=== PATIENT | male | born 1990 | race Caucasian/White ===

== ENCOUNTER 2016-10-23 19:51 | Emergency (ER) | payer OTHER ==
[~2016-10-23] VITALS: Ht 172.7 cm; Wt 72.6 kg
--- NOTE | ~2016-10-23 | EKG ---
[place], [place] ELECTROCARDIOGRAM REPORT NAME: MALATHI ANGEL JR UNIT #: [id number] ROOM: DOCTOR: GAYLE MARROQUIN MD BIRTHDATE: [birth year] DOS: 10/23/2016 TIME: 19:56:43. RATE AND RHYTHM: Normal sinus rhythm at 85 beats per minute. SD interval 132 milliseconds, QRS duration is 105 milliseconds, corrected QT interval 461 milliseconds. QRS axis is . IMPRESSION: Normal EKG. GAYLE MARROQUIN MD CM:EKGRPT:ELECTROCARDIOGRAM REPORT [id number] GAYLE MARROQUIN MD
[~2016-10-23 19:51] MED LIST: ATARAX25 MG PO; BACTROBAN OINT22 GM PO; HYDROCODONE BIT1 T11 PO; KENALOG0.1% TP; MOTRIN800 MG PO; PEN-VEE K500 MG PO; PROTONIX40 MG PO; Peridex 473 ML473 ML PO; VOLTAREN50 M1 PO; Zofran4 MG PO
[2016-10-23 20:16] LABS: BASO % 0.4 % (0.0-1.0); EOS # 0.1 10*3/uL (0.0-0.4); EOS % 0.8 % (1.0-4.0); HEMATOCRIT 43.8 % (42.0-52.0); HEMOGLOBIN 15.6 g/dl (14.0-18.0); LYMPH # 3.2 10*3/uL (1.3-4.4); LYMPH % 31.9 % (27.0-41.0); MEAN CELL VOLUME 83.9 fl (80.0-94.0); MEAN CORPUSCULAR HGB 29.9 pg (27.0-31.0); MEAN CORPUSCULAR HGB CONC 35.6 g/dl (33.0-37.0); MEAN PLATELET VOLUME 9.6 fl (9.6-12.3); MONO # 0.7 10*3/uL (0.1-1.0); MONO % 6.7 % (3.0-9.0); NEUT # 5.9 10*3/uL (2.3-7.9); NEUT % 59.9 % (47.0-73.0); PLATELET COUNT AUTOMATED 240 10*3/uL (130-400); RED BLOOD COUNT 5.22 10*6/uL (4.50-5.90); RED CELL DISTRI WIDTH 11.7 % (0-14.5); WHITE BLOOD COUNT 9.9 10*3/uL (4.8-10.8)
[2016-10-23 20:36] LABS: ALKALINE PHOSPHATASE 66 U/L (45-117); BILIRUBIN, TOTAL 0.9 mg/dl (0.2-1.0); BUN 11 mg/dl (7-24); CARBON DIOXIDE 18 mmol/L (21-32); CHLORIDE 104 mmol/L (98-107); EST GLOM FILT AFRICAN AMERICAN > 60 ml/min; GLUCOSE 118 mg/dL (65-99); MAGNESIUM 2.3 mg/dL (1.5-2.1); POTASSIUM 2.9 mmol/L (3.5-5.1); SGOT/AST 22 IU/L (3-35); SGPT/ALT 28 U/L (12-78); SODIUM 137 mmol/L (136-145); TOTAL PROTEIN 7.5 gm/dL (6.4-8.2)
[2016-10-23 20:37] LABS: TROPONIN I < 0.015 ng/ml (<0.045)
[2016-10-23] MEDS ORDERED: TRINTELLIX10 MG PO (20:44)
[2016-10-23 21:27] LABS: BILIRUBIN NEGATIVE (NEGATIVE); BLOOD NEGATIVE (NEGATIVE); CLARITY CLEAR (CLEAR); COLOR YELLOW (YELLOW); GLUCOSE NEGATIVE (NEGATIVE); KETONE 1+ (NEGATIVE); LEUKO ESTERASE NEGATIVE (NEGATIVE); NITRITE NEGATIVE (NEGATIVE); PROTEIN NEGATIVE (NEGATIVE); UROBILINOGEN 0.2 E.U./dl (0.2-1.0)
[2016-10-23 21:32] LABS: BACTERIA TRACE; EPITHELIAL CELLS 0-2; RBC 0-2 rbc/hpf (0-2); URINE REFLEX COMMENT NO (NO); WBC 0-2 wbc/hpf (0-5)
[2016-10-23 21:37] LABS: URINE AMPHETAMINES < 1000 (1000ng/ml); URINE BARBITURATES < 200 (200ng/ml); URINE COCAINE < 300 (300ng/ml)
[2016-10-23 22:13] LABS: LA>2 REFLEX 2 HR DRAW NOW
[2016-10-24 00:16] LABS: LA>2 REFLEX 4 HR DRAW NOW
[2016-10-24] MEDS ORDERED: K-TAB20 MEQ PO (00:21)
== END 2016-10-24 00:55 | disposition left against medical advice (07) ==
LOC: ED 19:51
PROVIDERS: Emergency Medicine Emergency Medical Services
DX: E87.6 Hypokalemia (principal); F10.129 Alcohol abuse with intoxication, unspecified; E83.51 Hypocalcemia; R55 Syncope and collapse; F41.9 Anxiety disorder, unspecified; K21.9 Gastro-esophageal reflux disease without esophagitis

== ENCOUNTER 2017-09-29 17:20 | Emergency (ER) | payer OTHER ==
[~2017-09-29] VITALS: Wt 74.8 kg
[~2017-09-29 17:20] MED LIST changes: +K-TAB20 MEQ PO; +TRINTELLIX10 MG PO
[2017-09-29 18:12] LABS: BASO % 0.7 % (0.0-1.0); EOS # 0.2 10*3/uL (0.0-0.4); EOS % 3.2 % (1.0-4.0); HEMATOCRIT 44.2 % (42.0-52.0); HEMOGLOBIN 15.5 g/dl (14.0-18.0); LYMPH # 1.6 10*3/uL (1.3-4.4); LYMPH % 26.4 % (27.0-41.0); MEAN CELL VOLUME 85.2 fl (80.0-94.0); MEAN CORPUSCULAR HGB 29.9 pg (27.0-31.0); MEAN CORPUSCULAR HGB CONC 35.1 g/dl (33.0-37.0); MEAN PLATELET VOLUME 9.4 fl (9.6-12.3); MONO # 0.6 10*3/uL (0.1-1.0); MONO % 9.3 % (3.0-9.0); NEUT # 3.6 10*3/uL (2.3-7.9); NEUT % 60.2 % (47.0-73.0); PLATELET COUNT AUTOMATED 210 10*3/uL (130-400); RED BLOOD COUNT 5.19 10*6/uL (4.50-5.90); RED CELL DISTRI WIDTH 11.9 % (0-14.5); WHITE BLOOD COUNT 5.9 10*3/uL (4.8-10.8)
[2017-09-29 18:24] LABS: BUN 13 mg/dl (7-24); CHLORIDE 105 mmol/L (98-107); CREATININE 0.95 mg/dL (0.70-1.30); POTASSIUM 4.3 mmol/L (3.5-5.1); SODIUM 140 mmol/L (136-145)
== END 2017-09-29 19:15 | disposition home or self-care (01) ==
LOC: ED 17:20
PROVIDERS: Emergency Medicine
DX: E86.0 Dehydration (principal); K21.9 Gastro-esophageal reflux disease without esophagitis; Z79.899 Other long term (current) drug therapy

== ENCOUNTER → 2018-12-13 | Day surgery (SDC) | payer OTHER ==
[~2018-12-13] VITALS: Ht 175.2 cm; Wt 90.7 kg
--- NOTE | ~2018-12-13 | O ---
[place], [place] OPERATIVE NOTE NAME: MALATHI ANGEL JR UNIT #: [id number] ROOM: DOCTOR: ESTELLE REYES MD BIRTHDATE: [birth year] DOS: 12/13/2018 INDICATIONS: A 28-year-old patient who has presented with persistent heartburn, takes Tums and has been on omeprazole 40 mg day. No ____. ALLERGIES: No known medication. FAMILY HISTORY: None. SOCIAL HISTORY: Unremarkable. PAST SURGICAL HISTORY: Unremarkable. PAST MEDICAL HISTORY: Back pain. PROCEDURE: Today's procedure part of investigation is panendoscopy plus biopsy. PREMEDICATION: Propofol. SCOPE: Olympus forward-viewing gastroscope Q10 video. REPORT: After putting the patient in left lateral position and application of lubricant to the scope, the scope was introduced. Thereafter, under direct visualization, advanced through the length of esophagus without difficulty. of the fascia length of esophagus without difficulty. Esophagogastric gastric junction ulceration was biopsied. Small hiatal hernia noticed. Gastric pouch was entered. Gastritis seen. Antral biopsy was obtained for H. pylori. Duodenal bulb, second and third part within normal limits. The patient extubated, tolerated the procedure well. IMPRESSION: Esophagogastric junction ulceration, small secondary to reflux, hiatal hernia 2 cm. Gastritis, status post biopsy. PLAN AND DISCUSSION: We are going to add Gaviscon Extra Strength 1 tablet p.c. breakfast, one tablet 5 minutes prior to bed. Continuation with omeprazole. Elevation of the head of the bed 6 inch all time. Dietary management and clinical reassessment. Awaiting biopsies. Thank you very much indeed. [place], [place] OPERATIVE NOTE NAME: MALATHI ANGEL JR UNIT #: [id number] ROOM: DOCTOR: ESTELLE REYES MD BIRTHDATE: [birth year] ESTELLE REYES MD CM:OPRECORD:OPERATIVE NOTE [id number] ESTELLE REYES MD 12/13/18 1300 interface
[2018-12-13 11:46] VITALS: BP 129/69
[2018-12-13 12:03] VITALS: BP 107/71
[2018-12-13 12:18] VITALS: BP 118/75
[2018-12-13 12:33] VITALS: BP 118/75
== END | disposition home or self-care (01) ==
LOC: SDC 12-11 13:15
DX: K29.50 Unspecified chronic gastritis without bleeding (principal); K25.9 Gastric ulcer, unspecified as acute or chronic, without hemorrhage or perforation; F32.9 Major depressive disorder, single episode, unspecified; K44.9 Diaphragmatic hernia without obstruction or gangrene; Z79.899 Other long term (current) drug therapy

== ENCOUNTER → 2019-09-27 | Outpatient (CLI) | payer OTHER | END | disposition home or self-care (01) | LOC: COVID19 00:26 | DX: Z03.818 Encounter for observation for suspected exposure to other biological agents ruled out (principal) ==

== ENCOUNTER → 2019-10-02 | Outpatient (CLI) | payer OTHER ==
[~2019-10-02] MED LIST changes: +LEVOFLOXACIN500 MG PO
== END | disposition home or self-care (01) ==
LOC: COVID19 08:15
DX: U07.1 COVID-19 (principal)

== ENCOUNTER 2019-10-06 13:53 | Emergency (ER) | payer OTHER ==
[~2019-10-06] VITALS: Ht 172.7 cm; Wt 90.7 kg
[~2019-10-06 13:53] MED LIST changes: -LEVOFLOXACIN500 MG PO
[2019-10-06 14:41] LABS: BASO % 0.2 % (0.0-1.0); HEMATOCRIT 42.8 % (42.0-52.0); LYMPH # 0.6 10*3/uL (1.3-4.4); MEAN CELL VOLUME 81.8 fl (80.0-94.0); MEAN CORPUSCULAR HGB 29.3 pg (27.0-31.0); MEAN CORPUSCULAR HGB CONC 35.7 g/dl (33.0-37.0); MEAN PLATELET VOLUME 9.2 fl (9.6-12.3); MONO # 0.3 10*3/uL (0.1-1.0); MONO % 5.2 % (3.0-9.0); NEUT # 4.9 10*3/uL (2.3-7.9); NEUT % 84.4 % (47.0-73.0); PLATELET COUNT AUTOMATED 182 10*3/uL (130-400); RED BLOOD COUNT 5.23 10*6/uL (4.50-5.90); RED CELL DISTRI WIDTH 11.8 % (0-14.5); WHITE BLOOD COUNT 5.8 10*3/uL (4.8-10.8)
[2019-10-06 14:56] LABS: ALBUMIN 3.6 gm/dl (3.1-4.5); ALKALINE PHOSPHATASE 71 U/L (45-117); BUN 12 mg/dl (7-24); CHLORIDE 103 mmol/L (98-107); CREATININE 0.95 mg/dL (0.70-1.30); POTASSIUM 3.4 mmol/L (3.5-5.1); SGOT/AST 40 IU/L (3-35); SGPT/ALT 48 U/L (12-78); SODIUM 134 mmol/L (136-145); TOTAL PROTEIN 8.1 gm/dL (6.4-8.2)
[2019-10-06] MEDS ORDERED: LEVOFLOXACIN500 MG PO (16:23)
== END 2019-10-06 16:50 | disposition home or self-care (01) ==
LOC: ED 13:53
PROVIDERS: Emergency Medicine
DX: U07.1 COVID-19 (principal); J12.89 Other viral pneumonia; F32.9 Major depressive disorder, single episode, unspecified

== ENCOUNTER → 2021-04-09 | Outpatient (CLI) | payer SELFPAY ==
[~2021-04-09] MED LIST changes: +LEVOFLOXACIN500 MG PO
== END | disposition home or self-care (01) ==
LOC: COVID19 15:33
PROVIDERS: ATTEND Internal Medicine
DX: U07.1 COVID-19 (principal)

== ENCOUNTER 2022-07-26 07:37 | Emergency (ER) | payer OTHER ==
[~2022-07-26] VITALS: Ht 172.7 cm; Wt 97.5 kg
[2022-07-26] MEDS ORDERED: TRAZODONE50 MG PO (07:44)
[2022-07-26] MEDS ORDERED: PANTOPRAZOLE SO40 MG PO (07:44)
[2022-07-26 08:10] LABS: BASO % 0.6 % (0.0-1.0); EOS # 0.1 10*3/uL (0.0-0.4); EOS % 1.7 % (1.0-4.0); HEMATOCRIT 43.2 % (42.0-52.0); LYMPH # 1.6 10*3/uL (1.3-4.4); LYMPH % 23.7 % (27.0-41.0); MEAN CORPUSCULAR HGB 29.5 pg (27.0-31.0); MEAN CORPUSCULAR HGB CONC 34.7 g/dl (33.0-37.0); MONO # 0.5 10*3/uL (0.1-1.0); MONO % 7.2 % (3.0-9.0); NEUT # 4.3 10*3/uL (2.3-7.9); NEUT % 66.5 % (47.0-73.0); PLATELET COUNT AUTOMATED 228 10*3/uL (130-400); RED BLOOD COUNT 5.08 10*6/uL (4.50-5.90); WHITE BLOOD COUNT 6.5 10*3/uL (4.8-10.8)
[2022-07-26 08:26] LABS: BILIRUBIN Negative (Negative); BLOOD 3+ (Negative); CLARITY Turbid (Clear); COLOR Yellow (Yellow); GLUCOSE Negative (Negative); KETONE Trace (Negative); LEUKO ESTERASE Negative (Negative); NITRITE Negative (Negative); PH 5.5 (4.5-8.0); SPECIFIC GRAVITY >= 1.030 (1.001-1.030)
[2022-07-26 08:38] LABS: ALKALINE PHOSPHATASE 88 U/L (46-116); BUN 14 mg/dl (9-23); CHLORIDE 106 mmol/L (98-107); LIPASE 29 U/L (12-53); POTASSIUM 3.8 mmol/L (3.4-5.1); SGPT/ALT 30 U/L (10-49); TOTAL PROTEIN 7.1 gm/dL (6.0-8.0)
[2022-07-26 08:58] LABS: BACTERIA TRACE; RBC 31-40 rbc/hpf (0-2)
[2022-07-26] MEDS ORDERED: PHENERGAN25 M3 PO (09:51)
[2022-07-26] MEDS ORDERED: HYDROCODONE-AC1 EAC1 PO (09:51)
[2022-07-26] MEDS ORDERED: Motrin,Rufen800 MG PO (09:51)
== END 2022-07-26 10:20 | disposition home or self-care (01) ==
LOC: ED 07:37
PROVIDERS: Emergency Medicine
DX: N20.1 Calculus of ureter (principal); F32.A Depression, unspecified; R11.2 Nausea with vomiting, unspecified

== ENCOUNTER → 2023-12-17 | Outpatient (CLI) | payer OTHER ==
[~2023-12-17] MED LIST changes: +HYDROCODONE-AC1 EAC1 PO; +Motrin,Rufen800 MG PO; +PANTOPRAZOLE SO40 MG PO; +PHENERGAN25 M3 PO; +TRAZODONE50 MG PO
== END | disposition home or self-care (01) ==
LOC: US 00:53
PROVIDERS: ATTEND Internal Medicine
DX: N43.3 Hydrocele, unspecified (principal); I86.1 Scrotal varices; R10.32 Left lower quadrant pain; N50.812 Left testicular pain

== ENCOUNTER → 2023-12-28 | Outpatient (CLI) | payer OTHER | END | disposition home or self-care (01) | LOC: US 09:50 | PROVIDERS: ATTEND Internal Medicine | DX: R10.9 Unspecified abdominal pain (principal) ==

== ENCOUNTER → 2024-02-07 | Outpatient (CLI) | payer OTHER | END | disposition home or self-care (01) | LOC: CT 09:00 | PROVIDERS: ATTEND Urology | DX: K76.0 Fatty (change of) liver, not elsewhere classified (principal); N20.0 Calculus of kidney; R10.9 Unspecified abdominal pain; K57.30 Diverticulosis of large intestine without perforation or abscess without bleeding ==

== ENCOUNTER → 2024-06-19 | Outpatient (CLI) | payer OTHER | END | disposition home or self-care (01) | LOC: RAD 09:16 | PROVIDERS: ATTEND Family Medicine | DX: S83.91XA Sprain of unspecified site of right knee, initial encounter (principal); M79.89 Other specified soft tissue disorders; X58.XXXA Exposure to other specified factors, initial encounter; Y93.89 Activity, other specified; Y92.89 Other specified places as the place of occurrence of the external cause; Y99.8 Other external cause status ==

== ENCOUNTER → 2024-08-24 | Outpatient (CLI) | payer OTHER | END | disposition home or self-care (01) | LOC: MRI 08:51 | PROVIDERS: ATTEND Family Medicine | DX: S83.91XA Sprain of unspecified site of right knee, initial encounter (principal); S86.911A Strain of unspecified muscle(s) and tendon(s) at lower leg level, right leg, initial encounter; S80.01XA Contusion of right knee, initial encounter; M94.262 Chondromalacia, left knee; X58.XXXA Exposure to other specified factors, initial encounter; Y93.89 Activity, other specified; Y92.89 Other specified places as the place of occurrence of the external cause; Y99.8 Other external cause status ==